=== PATIENT | female | born 1950 | race Two or more races ===

== ENCOUNTER 2023-02-01 01:53 | Inpatient (IN) | payer MEDICARE, OTHER ==
[~2023-02-01] VITALS: Ht 162.6 cm; Wt 68.5 kg
[2023-02-01] MEDS ORDERED: ACETAMINOPHEN ES 500 MG TABLET ONE (02:11)
[2023-02-01] MEDS ORDERED: ACETAMINOPHEN ES 500 MG TABLET PO ONE (02:15)
[2023-02-01] MEDS ORDERED: SIMV-46 PO (02:37)
[2023-02-01] MEDS ORDERED: OLME1TAB16 PO (02:37)
[2023-02-01 02:45] LABS: EOSINOPHILS # (AUTO) 0.1 K/uL (0.0-0.7); EOSINOPHILS % (AUTO) 1.4 % (0.0-7.0); HEMATOCRIT 37.6 % (31.2-41.9); HEMOGLOBIN 12.7 g/dL (10.9-14.3); LYMPHOCYTES # (AUTO) 0.7 K/uL (0.8-4.8); LYMPHOCYTES % (AUTO) 18.1 % (20.5-51.5); MEAN CORPUSCULAR HEMOGLOBIN 33.4 uug (24.7-32.8); MEAN CORPUSCULAR HGB CONC 34 g/dL (32.3-35.6); MEAN CORPUSCULAR VOLUME 98.6 fL (75.5-95.3); MONOCYTES # (AUTO) 0.3 K/uL (0.1-1.30); MONOCYTES % (AUTO) 8.1 % (0.0-11.0); NEUTROPHILS # (AUTO) 2.8 K/uL (1.8-8.9); NEUTROPHILS % (AUTO) 71.4 % (38.5-71.5); PLATELET COUNT (AUTO) 155 K/uL (179-408); RED BLOOD CELL COUNT(AUTO) 3.82 MIL/uL (3.63-4.92); RED CELL DISTRIBUTION WIDTH 16.6 % (12.3-17.7); WHITE BLOOD COUNT (AUTO) 3.9 K/uL (3.8-11.8)
[2023-02-01 02:51] LABS: DIFFERENTIAL COMMENT 1
[2023-02-01 02:56] LABS: CARBON DIOXIDE 28 mmol/L (21-32); CHLORIDE 105 mmol/L (98-107); CREATININE 0.9 mg/dL (0.6-1.3); GLUCOSE 121 mg/dL (74-106); POTASSIUM 4.1 mmol/L (3.5-5.1); SODIUM SERUM 142 mmol/L (136-145); UREA NITROGEN, BLOOD 18 mg/dL (7-18)
[2023-02-01 03:15] LABS: ALANINE AMINOTRANSFERASE 41 U/L (14-59); ALBUMIN 3.5 g/dL (3.4-5.0); ALKALINE PHOSPHATASE 156 U/L (50-136); ASPARTATE AMINOTRANSFERASE 38 U/L (15-37); BILIRUBIN,DIRECT 0.1 mg/dL (0.0-0.2); BILIRUBIN,TOTAL 0.4 mg/dL (0.2-1.0); NT-PRO BNP 66 pg/mL (0-125)
[2023-02-01 03:38] LABS: *BILIRUBIN,URIN NEGATIVE (NEGATIVE); *BLOOD, URINE NEGATIVE (NEGATIVE); *CLARITY,URINE CLEAR (CLEAR); *COLOR,URINE YELLOW (YELLOW); *KETONES,URINE NEGATIVE (NEGATIVE); *PROTEIN,URINE NEGATIVE (NEGATIVE); *UROBILINOGEN,URINE 0.2 E.U./dl (NORMAL); LEUKOCYTE ESTERASE ,URINE NEGATIVE (NEGATIVE); NITRITE, URINE NEGATIVE (NEGATIVE); PH,URINE 7.5 (5.0-8.0); UGLUCOSE NEGATIVE (NEGATIVE)
[2023-02-01] MEDS ORDERED: levoFLOXacin 500 MG TABLET ONE (03:39)
[2023-02-01] MEDS ORDERED: levoFLOXacin 500 MG TABLET PO ONE (03:45)
[2023-02-01] MEDS ORDERED: IBUPROFEN 600 MG TABLET ONE (03:45)
[2023-02-01] MEDS ORDERED: IBUPROFEN 600 MG TABLET PO ONE (03:45)
[2023-02-01] MEDS ORDERED: REMEDY ESSENTIAL ZINC PASTE 113 GM TP PRN (04:00)
[2023-02-01] MEDS ORDERED: ACETAMINOPHEN 325 MG TABLET PO PRN (04:00)
[2023-02-01] MEDS ORDERED: MAGNESIUM HYDROXIDE 30 ML LIQUID UDC PO PRN (04:00)
[2023-02-01 05:41] VITALS: BP 81/46; TEMP 99.4; O2SAT 96
[2023-02-01] MEDS ORDERED: IV NORMAL SALINE 500 ML BAG IV ONE (05:45)
[2023-02-01] MEDS ORDERED: LOSARTAN POTASSIUM 50 MG TABLET PO SCH (10:00)
[2023-02-01] MEDS ORDERED: HYDROCHLOROTHIAZIDE 25 MG TABLET PO SCH (10:00)
[2023-02-01 11:20] VITALS: BP 85/38; TEMP 97.9; O2SAT 98
[2023-02-01] MEDS: IV LACTATED RINGERS SOLUTION 1,000 ML IV PRN ×2 (12:53→23:00)
[2023-02-01] MEDS: VANCOMYCIN IV 1,000 MG in IV DEXTROSE 5% 250 ML IV SCH (13:46)
[2023-02-01] MEDS: ENOXAPARIN SODIUM 40 MG/0.4 ML DISP.SYRIN SQ SCH (14:23)
[2023-02-01] MEDS: HYDROCODONE/APAP 10-325 MG TABLET PO PRN ×2 (14:24→20:36)
[2023-02-01 16:29] VITALS: BP 98/56; TEMP 98.1; O2SAT 98
[2023-02-01 20:00] VITALS: BP 95/38; TEMP 97.9; O2SAT 98
[2023-02-01] MEDS: SIMVASTATIN 20 MG TABLET PO SCH (20:36)
[2023-02-02] VITALS: BP 100/40; TEMP 97.9; O2SAT 98
[2023-02-02] MEDS: levoFLOXacin 500 MG/D5W 500 MG in PREMIXED 1 EACH IV SCH (03:51)
[2023-02-02 06:00] VITALS: BP 98/56; TEMP 99.4; O2SAT 96
[2023-02-02] MEDS: HYDROCODONE/APAP 10-325 MG TABLET PO PRN (06:38)
[2023-02-02] MEDS: VANCOMYCIN IV 1,000 MG in IV DEXTROSE 5% 250 ML IV SCH (08:09)
[2023-02-02] MEDS: ENOXAPARIN SODIUM 40 MG/0.4 ML DISP.SYRIN SQ SCH (08:14)
[2023-02-02 08:59] LABS: BASOPHILS % (AUTO) 0.5 % (0.0-2.0); EOSINOPHILS % (AUTO) 0.2 % (0.0-7.0); HEMATOCRIT 34.6 % (31.2-41.9); HEMOGLOBIN 11.5 g/dL (10.9-14.3); LYMPHOCYTES % (AUTO) 12.9 % (20.5-51.5); MEAN CORPUSCULAR HEMOGLOBIN 32.5 uug (24.7-32.8); MEAN CORPUSCULAR HGB CONC 33 g/dL (32.3-35.6); MONOCYTES # (AUTO) 0.7 K/uL (0.1-1.30); MONOCYTES % (AUTO) 8.3 % (0.0-11.0); NEUTROPHILS # (AUTO) 6.1 K/uL (1.8-8.9); NEUTROPHILS % (AUTO) 78.1 % (38.5-71.5); PLATELET COUNT (AUTO) 123 K/uL (179-408); RED BLOOD CELL COUNT(AUTO) 3.53 MIL/uL (3.63-4.92); RED CELL DISTRIBUTION WIDTH 16.8 % (12.3-17.7); WHITE BLOOD COUNT (AUTO) 7.9 K/uL (3.8-11.8)
[2023-02-02] MEDS ORDERED: levoFLOXacin 500 MG/D5W 500 MG in PREMIXED 1 EACH IV SCH (09:00)
[2023-02-02 09:01] LABS: DIFFERENTIAL COMMENT 1
[2023-02-02 09:15] LABS: CALCIUM 8.2 mg/dL (8.5-10.1); CARBON DIOXIDE 23 mmol/L (21-32); CHLORIDE 104 mmol/L (98-107); CREATININE 0.9 mg/dL (0.6-1.3); GLUCOSE 123 mg/dL (74-106); MAGNESIUM 1.6 mg/dL (1.8-2.4); PHOSPHOROUS 2.5 mg/dL (2.5-4.9); POTASSIUM 3.6 mmol/L (3.5-5.1); SODIUM SERUM 136 mmol/L (136-145); UREA NITROGEN, BLOOD 14 mg/dL (7-18)
[2023-02-02] MEDS ORDERED: FENTANYL CITRATE 100 MCG/2 ML AMPUL IV PRN ×2 (09:15→10:15)
[2023-02-02] MEDS ORDERED: OXYCODONE/APAP 5-325 MG TABLET PO PRN (10:15)
[2023-02-02 12:00] VITALS: BP 132/73; TEMP 98.5; O2SAT 100
[2023-02-02] MEDS: IV LACTATED RINGERS SOLUTION 1,000 ML IV PRN ×2 (12:48→22:45)
[2023-02-02] MEDS: ONDANSETRON 4 MG/2 ML VIAL IV PRN ×2 (13:44→20:08)
[2023-02-02 16:00] VITALS: BP 120/71; TEMP 100.3; O2SAT 97
[2023-02-02] MEDS: VALACYCLOVIR HCL 500 MG TABLET PO SCH ×2 (16:08→21:09)
[2023-02-02 20:00] VITALS: BP 87/57; TEMP 99.1; O2SAT 97
[2023-02-02] MEDS: SIMVASTATIN 20 MG TABLET PO SCH (21:09)
[2023-02-03 00:24] VITALS: BP 99/56; TEMP 98.3; O2SAT 99
[2023-02-03] MEDS: VANCOMYCIN IV 1,000 MG in IV DEXTROSE 5% 250 ML IV SCH ×2 (02:13→20:06)
[2023-02-03] MEDS: levoFLOXacin 500 MG/D5W 500 MG in PREMIXED 1 EACH IV SCH (04:02)
[2023-02-03 04:40] VITALS: BP 95/57; TEMP 99; O2SAT 98
[2023-02-03] MEDS: VALACYCLOVIR HCL 500 MG TABLET PO SCH ×3 (06:17→22:10)
[2023-02-03 06:41] LABS: BASOPHILS % (AUTO) 0.4 % (0.0-2.0); EOSINOPHILS % (AUTO) 0.3 % (0.0-7.0); HEMATOCRIT 32.1 % (31.2-41.9); HEMOGLOBIN 10.8 g/dL (10.9-14.3); LYMPHOCYTES # (AUTO) 0.8 K/uL (0.8-4.8); LYMPHOCYTES % (AUTO) 11.2 % (20.5-51.5); MEAN CORPUSCULAR HEMOGLOBIN 33.2 uug (24.7-32.8); MEAN CORPUSCULAR HGB CONC 34 g/dL (32.3-35.6); MEAN CORPUSCULAR VOLUME 98.4 fL (75.5-95.3); MONOCYTES # (AUTO) 0.8 K/uL (0.1-1.30); MONOCYTES % (AUTO) 10.5 % (0.0-11.0); NEUTROPHILS # (AUTO) 5.8 K/uL (1.8-8.9); NEUTROPHILS % (AUTO) 77.6 % (38.5-71.5); PLATELET COUNT (AUTO) 102 K/uL (179-408); RED BLOOD CELL COUNT(AUTO) 3.27 MIL/uL (3.63-4.92); RED CELL DISTRIBUTION WIDTH 16.8 % (12.3-17.7); WHITE BLOOD COUNT (AUTO) 7.5 K/uL (3.8-11.8)
[2023-02-03 06:54] LABS: DIFFERENTIAL COMMENT 1
[2023-02-03 07:01] LABS: CALCIUM 8.4 mg/dL (8.5-10.1); CARBON DIOXIDE 26 mmol/L (21-32); CHLORIDE 105 mmol/L (98-107); CREATININE 0.8 mg/dL (0.6-1.3); GLUCOSE 101 mg/dL (74-106); MAGNESIUM 1.9 mg/dL (1.8-2.4); PHOSPHOROUS 2.2 mg/dL (2.5-4.9); POTASSIUM 3.6 mmol/L (3.5-5.1); SODIUM SERUM 138 mmol/L (136-145); UREA NITROGEN, BLOOD 10 mg/dL (7-18)
[2023-02-03] MEDS: FAMOTIDINE 20 MG TABLET PO SCH (08:35)
[2023-02-03] MEDS: ENOXAPARIN SODIUM 40 MG/0.4 ML DISP.SYRIN SQ SCH (08:35)
[2023-02-03 11:33] VITALS: BP 120/72; TEMP 98.5; O2SAT 98
[2023-02-03] MEDS: IV LACTATED RINGERS SOLUTION 1,000 ML IV PRN ×2 (12:00→20:06)
[2023-02-03 15:35] VITALS: BP 94/61; TEMP 98.6; O2SAT 98
[2023-02-03] MEDS ORDERED: NEUTRA PHOS PACKET PO ONE (15:45)
[2023-02-03 20:00] VITALS: BP 105/67; TEMP 98.9; O2SAT 100
[2023-02-03] MEDS: SIMVASTATIN 20 MG TABLET PO SCH (20:06)
[2023-02-04] MEDS: levoFLOXacin 500 MG/D5W 500 MG in PREMIXED 1 EACH IV SCH (03:53)
[2023-02-04] MEDS: VANCOMYCIN IV 1,000 MG in IV DEXTROSE 5% 250 ML IV SCH (05:00)
[2023-02-04 05:18] VITALS: BP 103/71; TEMP 98.2; O2SAT 98
[2023-02-04] MEDS: VALACYCLOVIR HCL 500 MG TABLET PO SCH ×2 (05:50→14:17)
[2023-02-04] MEDS: IV LACTATED RINGERS SOLUTION 1,000 ML IV PRN (06:48)
[2023-02-04] MEDS ORDERED: VANCOMYCIN IV 1,000 MG in IV DEXTROSE 5% 250 ML IV SCH (09:00)
[2023-02-04] MEDS ORDERED: VALA500T PO (09:54)
[2023-02-04] MEDS: FAMOTIDINE 20 MG TABLET PO SCH (10:01)
[2023-02-04] MEDS: ENOXAPARIN SODIUM 40 MG/0.4 ML DISP.SYRIN SQ SCH (10:03)
[2023-02-04 11:34] VITALS: BP 122/78; TEMP 97.5; O2SAT 98
[2023-02-04 15:48] VITALS: BP 116/80; TEMP 98.3; O2SAT 99
[2023-02-05] MEDS ORDERED: levoFLOXacin 500 MG TABLET PO SCH (06:00)
== END 2023-02-04 17:08 | disposition home or self-care (01) | DRG 596 ==
LOC: ER 01:53 → TELE3 04:56 → MEDSURG3 02-03 10:14
PROVIDERS: ADMIT Nurse Practitioner Family; ATTEND Nurse Practitioner Acute Care
PROC: 05H633Z Insertion of Infusion Device into Left Subclavian Vein, Percutaneous Approach (ICD-10-PCS; principal; 2023-02-01)
PROC: B547ZZA Ultrasonography of Left Subclavian Vein, Guidance (ICD-10-PCS; 2023-02-01)
DX: B02.9 Zoster without complications (principal); L03.113 Cellulitis of right upper limb; C79.51 Secondary malignant neoplasm of bone; D84.9 Immunodeficiency, unspecified; J90 Pleural effusion, not elsewhere classified; C50.911 Malignant neoplasm of unspecified site of right female breast; Z20.822 Contact with and (suspected) exposure to COVID-19; E78.5 Hyperlipidemia, unspecified; Z92.21 Personal history of antineoplastic chemotherapy; Z90.11 Acquired absence of right breast and nipple; I10 Essential (primary) hypertension; R73.9 Hyperglycemia, unspecified; R91.1 Solitary pulmonary nodule
CPT/HCPCS: 36415; 71045; 71250; 83605; 83735; 84100; 85025; 86140; 87040; 93005; A4663; A9150; G0378; J1650; J1956; J2405; J3370; J7040; J7050; J7120